=== PATIENT | female | born 1950 | race Asian ===

== ENCOUNTER 2021-04-15 13:06 | Emergency (ER) | payer MEDICARE, OTHER ==
[~2021-04-15] VITALS: Ht 157.5 cm; Wt 54.5 kg
[2021-04-15 16:29] VITALS: BP 125/65
== END 2021-04-15 16:07 | disposition home or self-care (01) ==
LOC: EMS 13:14
DX: G47.00 Insomnia, unspecified (principal); F41.9 Anxiety disorder, unspecified
CPT/HCPCS: 99283; Z7502

== ENCOUNTER 2021-05-01 08:06 | Emergency (ER) | payer MEDICARE, OTHER ==
[~2021-05-01] VITALS: Ht 157.5 cm; Wt 52.3 kg
[2021-05-01] MEDS ORDERED: [UNRECOGNIZED DRUG - CODE] PO (08:08)
[2021-05-01] MEDS ORDERED: MULT400T5 PO (08:08)
[2021-05-01] MEDS ORDERED: HYDR-3831 PO (08:10)
[2021-05-01 09:15] VITALS: BP 151/61
[2021-05-01] MEDS ORDERED: HYD25 PO (09:30)
[2021-05-01] MEDS ORDERED: ACET-2247 PO (09:30)
== END 2021-05-01 09:45 | disposition home or self-care (01) ==
LOC: EMS 08:18
DX: G47.00 Insomnia, unspecified (principal); R51.9 Headache, unspecified; F41.9 Anxiety disorder, unspecified
CPT/HCPCS: 99283; Z7502